=== PATIENT | female | born 1960 | race Caucasian/White ===

== ENCOUNTER 2017-03-29 10:39 | Inpatient (IN) | payer OTHER ==
--- NOTE | ~2017-03-29 | A ---
[facility] Nutrition Therapy DATE: 03/31/17 Patient: CHIRAG GRAY Physician: MUSHTAQ Address: [address] [place] [address] Room/Bed: [address] [place] [address], Zip: [place] [address] Admit Date: 03/30/17 Date of : [birth year] Height: 5 11 Weight: 242 110.2 NUTRITIONAL ASSESSMENT: REASON: CONSULT RE: DM DIET EDUCATION PT IS 56 Y.O. FEMALE ADMITTED FOR SOA, COPD EXAC HT: 5'11", WT: 242# (110 KG), BMI: 33.7 RD PROVIDED WRITTEN AND VERBAL CC DIET EDUCATION. RD PROVIDED LIST OF FOODS TO AVOID/LIMIT AND FOODS TO EAT MORE OFTEN. RD EMPHASIZED PORTION CONTROL AND LIMITING SUGAR-SWEETENED BEVERAGES DAILY. PT REPORTS CONSUMING PASTA, BREAD AND CRACKERS DAILY. RD EMPHASIZED ADDING FRUITS AND VEGETABLES TO EVERY MEAL AND SNACK WELL DEVELOP A CONSISTENT MEAL SCHEDULE. PT DEMONSTRATED UNDERSTANDING OF THE TOPIC. PT REPORTED NO DIET QUESTIONS AT THIS TIME. RD TO REMAIN AVAILABLE. RECOMMENDATIONS: 1. ENCOURAGE COMPLIANCE OF CURRENT DIET ORDER-CC RD TO F/U PER PROTOCOL Respectfully, GAMA ECKERT MS, RD, LD [employer] [facility] cc: client file
--- NOTE | ~2017-03-29 | HP ---
Unit #: [id number] #: [id number] Patient: CHIRAG GRAY [id number] [address] [address] [id number] I MR#: [id number] NAME: CHIRAG GRAY ROOM: 30049 Age: 56 Sex: F Admission Date: 03/29/2017 : 1960 Attending Physician: Sahil Cortes M.D. Primary Care Physician: No Primary Care Physician HISTORY AND PHYSICAL CHIEF COMPLAINT Shortness of breath. HISTORY OF PRESENT ILLNESS The patient is a 56-year-old female with a history of diabetes and COPD, who presented to the emergency room complaining of shortness of breath. The shortness of breath has been present for the last few days and has been gradually worsening to the point that she cannot take it anymore. The patient has been having short of air for the last one week associated with dry cough. The patient continues to smoke a pack of cigarettes daily and denies any sick contacts or any fever, chills, nausea, vomiting. PAST MEDICAL HISTORY History of hypertension and diabetes. PAST SURGICAL HISTORY . SOCIAL HISTORY The patient smokes tobacco, one pack per day. The patient denies any alcohol or any illicit drug abuse. FAMILY HISTORY Reviewed and none. ALLERGIES Morphine. HOME MEDICATION 1. Metformin. 2. Glipizide. 3. Gabapentin. 4. Prednisone. REVIEW OF SYSTEMS A 14-point review of systems performed and only pertinent positive findings are described above. PHYSICAL EXAMINATION GENERAL APPEARANCE: The patient is lying on a bed not in acute distress. VITAL SIGNS: Temperature 98.1. Pulse 96. Respiratory rate 16. Blood pressure 192/62. Sating 98% at room air. HEENT: Head: Atraumatic, normocephalic. ENT: Pupils equal, round, reacting to light and accommodation. Extraocular movements are intact. Unit #: [id number] #: [id number] Patient: CHIRAG GRAY NECK: Supple. LUNGS: Decreased air entry at the bases. Positive for the expiratory wheezing. HEART: Regular rate and rhythm. ABDOMEN: Soft. Positive bowel sounds. EXTREMITIES: No cyanosis. No clubbing. NEUROLOGIC: Alert, awake, oriented. No gross focal motor deficit. DIAGNOSTIC STUDIES LABORATORY: Glucose 210, BUN 7, creatinine 0.7, sodium 136, potassium 3.8, chloride 97, bicarb 30, calcium 9. BNP 29. Troponin less than 0.05. WBC 11.1, hemoglobin 15.1, hematocrit 45.9, platelets 162, neutrophils 80.1. IMAGING: Chest x-ray shows no acute cardiopulmonary findings. CARDIOVASCULAR: EKG shows normal sinus rhythm with a rate of 85 beats per minute, MO interval of 138, QTC of 435. The patient was hypoxic and oxygen saturation went down to 85% at room air. The patient is being admitted for the above reasons. ASSESSMENT 1. Acute respiratory failure with hypoxia. 2. COPD exacerbation. 3. Diabetes. PLAN To admit the patient to inpatient with telemetry. Continue with IV Solu-Medrol, DuoNeb and Zithromax for immunomodulatory effect. The patient will have home oxygen evaluation during the hospitalization, sliding scale with Accu-Cheks a.c. and h.s. for the diabetes and nicotine patch for the tobacco abuse. Further recommendations will follow. Dictated by Yisel Zimmerman TD: 03/29/2017 16:43 JOB #: [id number] HISTORY AND PHYSICAL Page 1 of 1 X X HISTORY AND PHYSICAL
--- NOTE | ~2017-03-29 | DS ---
Unit #: [id number] #: [id number] Patient: CHIRAG GRAY [id number] [address] [address] [id number] I MR#: [id number] NAME: CHIRAG GRAY ROOM: 239 Age: 56 Sex: F Admission Date: 03/30/2017 : 1960 Discharge Date: 04/02/2017 Attending Physician: Madeleine Ken M.D. Primary Care Physician: Primary Care Physician No DISCHARGE SUMMARY PRINCIPAL DIAGNOSES 1. Qwplb-fa-szankur hypoxic respiratory failure, maintained on 2 liters of oxygen per nasal cannula continuously. 2. Acute exacerbation of chronic obstructive pulmonary disease. 3. Acute bronchitis. 4. Diabetes mellitus type 2, non-insulin requiring and uncontrolled with hemoglobin A1c 7.3. 5. Significant steroid-induced hyperglycemia. 6. Hyperkalemia, resolved. 7. Left elbow wound with wound culture positive for MRSA. 8. Tobaccoism. 9. Obesity. CONSULTANTS None. PROCEDURES Chest x-ray on 03/29/2017 without any acute findings. CLINICAL HISTORY AND HOSPITAL COURSE Ms. Gray is a nice 56-year-old female with a history of tobacco abuse who presents to the emergency department with shortness of breath. In the ER, she was found to be hypoxic. Chest x-ray was unremarkable. The patient was found to have significant wheezing on exam. She was subsequently admitted for COPD exacerbation with associated hypoxia. The patient was placed on IV steroids and unfortunately, during hospitalization, the dose had to be increased due to her significant amount of wheezing. With supportive care, her wheezing is now significantly improved, however she still remains hypoxic. Ambulating O2 saturations dropped to 79% and O2 saturations are in the low 90s on 2 liters at rest. I have discussed with her the need for home oxygen, at least temporarily, perhaps permanently, and patient is agreeable. I will place her on 2 liters of oxygen per nasal cannula continuously, in addition to a tapering dose of prednisone and completing a short course of antibiotics. She can follow up with the [facility] and will need to undergo further testing as outlined below. The patient did have some significant steroid-induced hyperglycemia with the sugars running in the 300s. During hospitalization, she was placed on Levemir and NovoLog; however, her A1c is not significantly elevated and I think once she completes steroid therapy, sugars will be improved. Will discharge her back home on her metformin and Micronase. Will need further Unit #: [id number] #: [id number] Patient: CHIRAG GRAY monitoring of sugars as an outpatient. The patient has intermittently elevated blood pressures but I suspect this is steroid-induced, again this can be followed up in the office. The patient did have a scab present on her left elbow which underwent a wound culture during hospitalization revealing MRSA. However, patient denied any fevers, denied any leukocytosis nor is there any drainage from this elbow and there is only minimal erythema. It really does not require an antibiotic therapy but I am going to complete a few days of doxycycline in regard to her breathing and this should help with any sort of underlying infection that perhaps is escaping clinical exam on discharge. DISCHARGE CONDITION Stable. DISCHARGE STATUS Discharge to home with home O2. DISCHARGE MEDICATIONS 1. Oxygen at 2 liters per nasal cannula continuously. 2. DuoNeb nebulizer treatments 3 mL q.6 h. p.r.n. for shortness of breath. 3. Prednisone 10 mg tablets 4 tablets for 3 days; 3 tablets for 3 days; 2 tablets for 3 days; 1 tablet for 3 days, then discontinue. 4. Gabapentin 300 mg p.o. t.i.d. 5. Metformin 500 mg b.i.d. 6. Tussionex cough syrup 5 mL q.12 h. p.r.n. cough. 7. Nicotine patch 14 mg daily for 7 days; then, 7 mg daily for 7 days; then, discontinue. 8. Doxycycline 100 mg p.o. b.i.d. for 4 days. 9. Micronase 5 mg p.o. daily. 10. Symbicort 160/4.5 mcg two puffs b.i.d. DISCHARGE INSTRUCTIONS The patient was instructed to follow a heart healthy, constant carb diet. She can continue Accu-Cheks at home at least once daily particularly while she is on steroid therapy. She can increase her activity as tolerated. She is to wear her oxygen at all times for now. FOLLOWUP 1. The patient will follow up in [facility] in 2 weeks. 2. She will need an ambulating oxygen saturation on room air upon reevaluation given she may not require oxygen long-term. 3. In about 4-6 weeks, she needs outpatient Pulmonary Function Testing to determine the severity of her underlying COPD. 4. Again, will need also close follow up of her sugars and blood pressure. Time spent on discharge 27 minutes. Unit #: [id number] #: [id number] Patient: CHIRAG GRAY Dictated by... Madeleine Ken M.D. AGNES/alpesh TD: 04/03/2017 19:29 JOB #: [id number] DISCHARGE SUMMARY Page 1 of 1 X Madeleine Ken MD X DISCHARGE SUMMARY
--- NOTE | ~2017-03-29 | EKG ---
PATIENT: CHIRAG GRAY UNIT #: [id number] Ventricular Rate: 85 BPM Atrial Rate: 85 BPM P-R Interval: 138 ms QRS Duration: 92 ms Q-T Interval: 366 ms QTC Calculation(Bezet): 435 ms P [place]: 68 degrees Calculated R [place]: 22 degrees Calculated T [place]: 43 degrees Diagnosis Line: Normal sinus rhythm Diagnosis Line: Normal ECG Diagnosis Line: No previous ECGs available Diagnosis Line: Confirmed by RACHEAL DOBSON MD ([id number]) on Diagnosis Line: 03/29/2017 4:33:05 PM INTERPRETING MD: OLYA NA
--- NOTE | ~2017-03-29 | CR63 ---
[facility] A Service of [facility] & [facility] RADIOLOGY TEXT RESULTS PATIENT: CHIRAG GRAY LOCATION: [place] [address]- : [birth year] UNIT #: [id number] AGE: [address]: Madeleine Ken MD SEX: F ORDER DR: [id number] [facility] [address] [place], [place] [address] [id number] MR#: [id number] Acc #: [id number] NAME: CHIRAG GRAY : 1960 SEX: F STUDY DATE/TIME: 03/29/2017 13:07 UNIT: [facility] ROOM: STUDY DESCRIPTION: CR Chest 2 View Attending Physician: Conner Henley M.D. Ordering Physician: Conner Henley M.D. Primary Care Physician: No Primary Care Physician MEDICAL IMAGING REPORT This report is preliminary unless electronic signature is present EXAM Two-view chest, 03/29/2017. HISTORY 56-year-old female with cough and congestion for 1 week. Shortness of breath. COMPARISON Chest, 03/09/2009. FINDINGS 2 frontal views and 1 lateral view of the chest. 3 total images. The lungs and pleural spaces are clear. No pneumothorax. Heart size and mediastinum within normal limits. Pulmonary vasculature unremarkable. IMPRESSION No acute cardiopulmonary findings. Dictated by... Nathan Harris M.D. THIS IS AN ELECTRONICALLY VERIFIED REPORT Nathan Harris M.D. at 03/30/2017 6:24 AM JAVON/bennie TD: 03/29/2017 13:49 JOB #: [id number] MEDICAL IMAGING REPORT Page 1 of 1 COPY
[~2017-03-29 10:39] MED LIST: ALBUTEROL17 GM INH; DOXYCYCLINE PO; FLEXERIL10 MG PO; LORTAB 5/500 TA1 TA1 PO; NORVASC PO; PREDNISONE PO
[2017-03-29 12:51] LABS: POC - CKMB 1.4 ng/mL (0.0-7.9); POC - TROPONIN <0.05 ng/mL (<=0.05)
[2017-03-29 13:14] LABS: BASOPHIL% 0.4 % (0-2.5); EOSINOPHIL# 0.1 X10e3 (0-0.7); EOSINOPHIL% 0.6 % (0.0-7.0); HEMATOCRIT 45.9 % (35.0-45.0); HEMOGLOBIN 15.1 gm/dL (12.0-16.0); LYMPHOCYTE# 1.3 X10e3 (1.0-3.5); LYMPHOCYTE% 12.2 % (17.0-45.0); MEAN CELL VOLUME 84.1 FL (83-96); MEAN CORPUSCULAR HEMOGLOBIN 27.6 PG (28-34); MEAN CORPUSCULAR HGB CONC 32.8 g/dL (30-36); MEAN PLATELET VOLUME 7.9 FL (6.5-11.5); MONOCYTE# 0.7 X10e3 (0-1.0); MONOCYTE% 6.7 % (3.0-12.0); NEUTROPHIL# 8.9 X10e3 (1.5-7.1); NEUTROPHIL% 80.1 % (40-75); PLATELET COUNT 162 X10e3 (140-420); RED BLOOD COUNT 5.46 X10e (3.90-5.30); RED CELL DISTRIBUTION WIDTH 14.3 % (11.0-15.5); WHITE BLOOD COUNT 11.1 X10e3 (4.0-10.5)
[2017-03-29 13:15] LABS: DIFF IND NO
[2017-03-29 13:40] LABS: CREATININE SERUM 0.7 mg/dL (0.6-1.4); GLOM FILT RATE Estimated 98.2 mL/min (>60); POTASSIUM 3.8 mmol/L (3.5-5.1)
[2017-03-29] MEDS ORDERED: GLUCOPHAGE500 MG PO (20:20)
[2017-03-29] MEDS ORDERED: GABAPENTIN300 M2 PO (20:21)
[2017-03-29] MEDS ORDERED: MICRONASE5 M2 PO (20:22)
[2017-03-30 05:47] LABS: HEMOGLOBIN 14.5 gm/dL (12.0-16.0); MEAN CELL VOLUME 85.3 FL (83-96); MEAN CORPUSCULAR HEMOGLOBIN 27.5 PG (28-34); MEAN CORPUSCULAR HGB CONC 32.2 g/dL (30-36); MEAN PLATELET VOLUME 8.4 FL (6.5-11.5); RED BLOOD COUNT 5.27 X10e (3.90-5.30); RED CELL DISTRIBUTION WIDTH 14.1 % (11.0-15.5)
[2017-03-30 06:40] LABS: BUN/CREATININE RATIO 17.77; CALCIUM SERUM 9.3 mg/dL (8.4-10.2); CREATININE SERUM 0.9 mg/dL (0.6-1.4); GLOM FILT RATE Estimated 72.5 mL/min (>60); POTASSIUM 4.3 mmol/L (3.5-5.1)
[2017-03-31 06:43] LABS: BUN/CREATININE RATIO 23.75; CALCIUM SERUM 9.6 mg/dL (8.4-10.2); CREATININE SERUM 0.8 mg/dL (0.6-1.4); GLOM FILT RATE Estimated 83.7 mL/min (>60); POTASSIUM 5.2 mmol/L (3.5-5.1)
[2017-04-01 07:32] LABS: BUN/CREATININE RATIO 28.57; CALCIUM SERUM 9.3 mg/dL (8.4-10.2); CREATININE SERUM 0.7 mg/dL (0.6-1.4); GLOM FILT RATE Estimated 98.2 mL/min (>60); POTASSIUM 4.6 mmol/L (3.5-5.1)
[2017-04-02] MEDS ORDERED: DUONEBS (10:17)
[2017-04-02] MEDS ORDERED: PREDNISONE (10:17)
[2017-04-02] MEDS ORDERED: TUSSIONEX (10:18)
[2017-04-02] MEDS ORDERED: NICOTINE PATCH1 EACH (10:19)
[2017-04-02] MEDS ORDERED: DOXYCYCLINE HY100 M4 PO (10:20)
[2017-04-02] MEDS ORDERED: SYMBICORT INH (10:21)
[2017-04-02] MEDS ORDERED: OXYGEN (10:21)
== END 2017-04-02 14:38 | disposition home or self-care (01) | DRG 189 ==
LOC: CED 10:39 → CEDOF 15:28 → C5B 23:12 → CEDOF 23:12 → C5B 03-30 05:38 → C2A 03-30 15:15 → C5B 03-30 15:15 → CEDOF 03-30 15:15 → C2A 03-31 10:58
PROVIDERS: Emergency Medicine; Internal Medicine
DX: J96.21 Acute and chronic respiratory failure with hypoxia (principal); J44.0 Chronic obstructive pulmonary disease with (acute) lower respiratory infection; J44.1 Chronic obstructive pulmonary disease with (acute) exacerbation; J20.9 Acute bronchitis, unspecified; E11.65 Type 2 diabetes mellitus with hyperglycemia; Z79.84 Long term (current) use of oral hypoglycemic drugs; T38.0X5A Adverse effect of glucocorticoids and synthetic analogues, initial encounter; Y92.9 Unspecified place or not applicable; E87.5 Hyperkalemia; R23.4 Changes in skin texture; B95.62 Methicillin resistant Staphylococcus aureus infection as the cause of diseases classified elsewhere; F17.210 Nicotine dependence, cigarettes, uncomplicated; E66.9 Obesity, unspecified; Z68.33 Body mass index [BMI] 33.0-33.9, adult; I10 Essential (primary) hypertension; Z88.5 Allergy status to narcotic agent
CPT/HCPCS: 71020; 80048; 82553; 82947; 83036; 83880; 84484; 85025; 85027; 87070; 87077; 87186; 87205; 93005; 94640; 94760; 96374; 99285; J1650; J1815; J1940; J2920; J2930

== ENCOUNTER 2017-04-24 19:13 | Emergency (ER) | payer OTHER ==
--- NOTE | ~2017-04-24 | CR127 ---
[facility] A Service of [facility] & [facility] RADIOLOGY TEXT RESULTS PATIENT: CHIRAG GRAY LOCATION: [facility] : [birth year] UNIT #: [id number] AGE: [address]: Darlyn Parish MD SEX: F ORDER DR: [id number] [facility] [address] [place], [place] [address] [id number] E MR#: [id number] Acc #: [id number] NAME: CHIRAG GRAY : 1960 SEX: F STUDY DATE/TIME: 04/24/2017 19:51 UNIT: [facility] ROOM: STUDY DESCRIPTION: CR Foot Complete Min 3 View Rt Attending Physician: Darlyn Parish M.D. Ordering Physician: Darlyn Parish M.D. Primary Care Physician: Clifford Betts M.D. MEDICAL IMAGING REPORT This report is preliminary unless electronic signature is present EXAM Right foot series INDICATIONS Right foot pain and swelling today. No known injury. PROCEDURE Three views of the right foot. COMPARISON None FINDINGS No acute fracture or dislocation. IMPRESSION No acute findings. Dictated by... Luis Landa M.D. THIS IS AN ELECTRONICALLY VERIFIED REPORT Luis Landa M.D. at 04/25/2017 9:30 AM EED/psc TD: 04/24/2017 22:01 JOB #: [id number] MEDICAL IMAGING REPORT Page 1 of 1 COPY
[~2017-04-24 19:13] MED LIST changes: +DOXYCYCLINE HY100 M4 PO; +DUONEBS; +GABAPENTIN300 M2 PO; +GLUCOPHAGE500 MG PO; +MICRONASE5 M2 PO; +NICOTINE PATCH1 EACH; +OXYGEN; +PREDNISONE; +SYMBICORT INH; +TUSSIONEX
[2017-04-24] MEDS ORDERED: BREO ELLIPTA 11 EACH INH (19:16)
[2017-04-24 20:02] LABS: BASOPHIL% 0.7 % (0-2.5); EOSINOPHIL# 0.2 X10e3 (0-0.7); EOSINOPHIL% 3.7 % (0.0-7.0); HEMATOCRIT 46.1 % (35.0-45.0); HEMOGLOBIN 15.3 gm/dL (12.0-16.0); LYMPHOCYTE% 34.2 % (17.0-45.0); MEAN CORPUSCULAR HEMOGLOBIN 27.4 PG (28-34); MEAN CORPUSCULAR HGB CONC 33.1 g/dL (30-36); MEAN PLATELET VOLUME 8.1 FL (6.5-11.5); MONOCYTE# 0.4 X10e3 (0-1.0); MONOCYTE% 6.1 % (3.0-12.0); NEUTROPHIL# 3.3 X10e3 (1.5-7.1); NEUTROPHIL% 55.3 % (40-75); PLATELET COUNT 137 X10e3 (140-420); RED BLOOD COUNT 5.56 X10e (3.90-5.30); RED CELL DISTRIBUTION WIDTH 14.1 % (11.0-15.5)
[2017-04-24 20:09] LABS: DIFF IND NO
[2017-04-24 20:17] LABS: PARTIAL THROMBOPLASTIN TIME 24.7 SECONDS (23.5-31.3); PROTHROMBIN TIME (PATIENT) 10.6 SECONDS (10.0-11.7)
[2017-04-24 20:36] LABS: BUN/CREATININE RATIO 12.5; CREATININE SERUM 0.8 mg/dL (0.6-1.4); GLOM FILT RATE Estimated 83.7 mL/min (>60); POTASSIUM 3.3 mmol/L (3.5-5.1)
== END 2017-04-24 22:50 | disposition home or self-care (01) ==
LOC: CED 19:13
PROVIDERS: Student in an Organized Health Care Education/Training Program
DX: L03.031 Cellulitis of right toe (principal); E11.9 Type 2 diabetes mellitus without complications; I10 Essential (primary) hypertension; J44.9 Chronic obstructive pulmonary disease, unspecified; F17.200 Nicotine dependence, unspecified, uncomplicated; Z88.5 Allergy status to narcotic agent; Z79.84 Long term (current) use of oral hypoglycemic drugs; Z79.899 Other long term (current) drug therapy
CPT/HCPCS: 36415; 73630; 80048; 85025; 85610; 85730; 86140; 96365; 99284